=== PATIENT | female | born 1930 | race Caucasian/White ===

== ENCOUNTER → 2017-01-12 | Outpatient (CLI) | payer OTHER, MEDICARE ==
[~2017-01-12] MED LIST: B-COMPLEX-VITA1 EACH PO; CIPRO750 MG PO; COLACE100 MG PO; FLAGYL500 MG PO; GLUCOSAMINE-CH1 EA32 PO; LORTAB 5-325 M1 EACH PO; OMEGA-31000 M1 PO; TYLENOL EXTRA500 MG PO; VITAMIN C1000 MG PO; VITAMIN D31000 UNIT PO; VITAMINS
== END | disposition home or self-care (01) ==
LOC: RAD 17:01
DX: I82.432 Acute embolism and thrombosis of left popliteal vein (principal); I82.492 Acute embolism and thrombosis of other specified deep vein of left lower extremity
CPT/HCPCS: 93971

== ENCOUNTER 2017-02-14 10:58 | Emergency (ER) | payer OTHER, MEDICARE ==
[~2017-02-14] VITALS: Ht 162.6 cm; Wt 53.0 kg
[2017-02-14 11:53] LABS: EOSINOPHIL (%) 3.1 % (0-5); EOSINOPHIL COUNT 0.2 K/uL (0-0.3); HEMATOCRIT 37.6 % (36.0-46.0); IMMATURE GRANULOCYTE (%) 0.1 % (0.0-0.7); INSTRUMENT ABS NEUTROPHIL CT 5.6 K/uL; LYMPHOCYTE COUNT 0.9 K/uL (1.0-2.8); MCH 30.5 PG (29.0-34.0); MCHC 33.8 G/DL (30.0-36.0); MCV 90.2 FL (83-99); MEAN PLAT.VOLUME 9.2 uM^3 (9.5-12.4); MONOCYTE (%) 9.3 % (3-12); MONOCYTE COUNT 0.7 K/uL (0-0.8); NEUTROPHIL (%) 75.4 % (45-76); NEUTROPHIL COUNT 5.6 K/uL (1.8-6.4); PLATELET COUNT 138 K/uL (156-360); RBC DIS.WIDTH-CV 14.4 % (11.8-14.6); RBC DIS.WIDTH-SD 47.6 % (39-53); RED BLOOD COUNT 4.17 M/uL (3.80-5.20); WHITE BLOOD COUNT 7.4 K/uL (4.1-10.2)
[2017-02-14 12:01] LABS: INTER. NORMALIZED RATIO 1.6; PROTHROMBIN TIME 18.6 SEC (10.2-12.9)
[2017-02-14 12:04] LABS: PTT 26.6 SEC (25-37)
[2017-02-14 12:05] LABS: CHLORIDE 104 mEq/L (99-109); MAGNESIUM 1.8 mg/dL (1.3-2.7); POTASSIUM 4.1 mEq/L (3.7-5.4); SODIUM 135 mEq/L (136-147)
[2017-02-14 12:07] LABS: GLUCOSE 87 mg/dL (70-99)
[2017-02-14 12:08] LABS: ANION GAP 7 MEQ/L (2-14)
[2017-02-14 12:09] LABS: TOTAL BILIRUBIN 0.5 mg/dL (0.0-1.0)
[2017-02-14 12:11] LABS: ALKALINE PHOSPHATASE 56 IU/L (3-129); GFR ESTIMATE (CALCULATED) > 59 mL/min/
[2017-02-14 12:12] LABS: UREA NITROGEN (BUN) 18 mg/dL (9-23)
[2017-02-14 12:14] LABS: CREATINE KINASE 34 IU/L (1-294); TOTAL CK 34 IU/L (1-294); TROP-I INTERPRETATION NEGATIVE; TROPONIN-I 0.13 ng/mL (0.0-0.30)
[2017-02-14 12:20] LABS: CK-MB 1.7 ng/mL (0.0-4.9)
[2017-02-14 14:07] LABS: ADD MIUA? NO; BILIRUBIN NEGATIVE; BLOOD NEGATIVE; COLOR YELLOW ((YELLOW)); GLUCOSE (STRIP) NEGATIVE; KETONES NEGATIVE; LEUKOCYTES NEGATIVE; NITRITE NEGATIVE; PROTEIN (STRIP) NEGATIVE; SPECIFIC GRAVITY 1.011 (1.000-1.030); UCUL ADDED? NO; UROBILINOGEN 0.2 MG/DL (0.2-1.0)
[2017-02-14 16:04] VITALS: BP 154/77
== END 2017-02-14 16:09 | disposition home or self-care (01) ==
LOC: EME 10:58
PROVIDERS: Emergency Medicine
DX: C34.90 Malignant neoplasm of unspecified part of unspecified bronchus or lung (principal); J91.0 Malignant pleural effusion; E86.0 Dehydration; R53.1 Weakness; Z86.718 Personal history of other venous thrombosis and embolism; Z79.01 Long term (current) use of anticoagulants; Z87.891 Personal history of nicotine dependence; Z88.2 Allergy status to sulfonamides
CPT/HCPCS: 71020; 80053; 81003; 82550; 82553; 83735; 84484; 85025; 85610; 85730; 93005; 99281; 99285; J7030

== ENCOUNTER 2017-02-20 21:34 | Inpatient (IN) | payer OTHER, MEDICARE ==
[~2017-02-20] VITALS: Ht 167.6 cm; Wt 49.8 kg
[2017-02-20 21:56] LABS: HEMOGLOBIN 12.6 G/DL (11.9-15.5); MCH 30.7 PG (29.0-34.0); MCV 87.8 FL (83-99); PLATELET COUNT 135 K/uL (156-360); RBC DIS.WIDTH-CV 14.1 % (11.8-14.6); RBC DIS.WIDTH-SD 45.1 % (39-53); WHITE BLOOD COUNT 6.5 K/uL (4.1-10.2)
[2017-02-20 22:09] LABS: CHLORIDE 99 mEq/L (99-109); POTASSIUM 4.3 mEq/L (3.7-5.4); SODIUM 130 mEq/L (136-147)
[2017-02-20 22:10] LABS: GLUCOSE 99 mg/dL (70-99)
[2017-02-20 22:14] LABS: CREATININE 0.8 mg/dL (0.6-1.3); GFR ESTIMATE (CALCULATED) > 59 mL/min/
[2017-02-20 22:15] LABS: UREA NITROGEN (BUN) 16 mg/dL (9-23)
[2017-02-20 22:18] LABS: TROP-I INTERPRETATION INDETERMINATE; TROPONIN-I 0.53 ng/mL (0.0-0.30)
[2017-02-20 23:45] LABS: APPEARANCE CLEAR ((CLEAR)); BILIRUBIN NEGATIVE; BLOOD LARGE; COLOR STRAW ((YELLOW)); GLUCOSE (STRIP) NEGATIVE; KETONES NEGATIVE; LEUKOCYTES NEGATIVE; NITRITE NEGATIVE; PROTEIN (STRIP) NEGATIVE; SPECIFIC GRAVITY 1.005 (1.000-1.030); UROBILINOGEN 0.2 MG/DL (0.2-1.0)
[2017-02-20 23:50] LABS: BACTERIA RARE /HPF; EPITHELIAL CELLS NONE SEEN /HPF; MUCUS TRACE /LPF; RED BLOOD CELLS TNTC /HPF (0-5); UCUL ADDED? YES; WHITE BLOOD CELLS 0-5 /HPF (0-5)
[2017-02-21] MEDS ORDERED: [UNRECOGNIZED DRUG - OTHER] SL (00:23)
[2017-02-21] MEDS ORDERED: XARELTO20 MG PO (00:23)
[2017-02-21 00:47] LABS: INTER. NORMALIZED RATIO 1.2
[2017-02-21 00:49] LABS: PTT 23.4 SEC (25-37)
[2017-02-21 02:10] VITALS: BP 148/64
[2017-02-21 04:15] VITALS: BP 157/70
[2017-02-21 05:22] LABS: TROP-I INTERPRETATION POSITIVE; TROPONIN-I 0.72 ng/mL (0.0-0.30)
[2017-02-21 05:27] LABS: HDL CHOLESTEROL 55 MG/DL (Desirable>=50); LDL CHOLESTEROL 113 mg/dL (Desirable<100); NON-HDL CHOLESTEROL 123 mg/dL (Desirable<160); TOTAL CHOLESTEROL 178 mg/dL (Desirable<200); TRIGLYCERIDES 48 MG/DL (Normal: <150)
[2017-02-21 07:49] VITALS: BP 161/68
[2017-02-21 10:31] LABS: TROP-I INTERPRETATION INDETERMINATE; TROPONIN-I 0.57 ng/mL (0.0-0.30)
[2017-02-21 12:01] VITALS: BP 139/65
[2017-02-21 17:04] VITALS: BP 137/61
[2017-02-21 19:20] VITALS: BP 161/69
[2017-02-22] VITALS (7 sets, daily range): BP systolic 116–159; BP diastolic 54–69
[2017-02-22 11:59] LABS: ALBUMIN 3.4 G/DL (3.2-4.8); ALKALINE PHOSPHATASE 49 IU/L (3-129); ALT (GPT) 23 IU/L (3-49); AST (GOT) 31 IU/L (2-34); CHLORIDE 99 MEQ/L (99-109); CREATININE 0.8 MG/DL (0.6-1.3); GFR ESTIMATE (CALCULATED) > 59 mL/min/; GLUCOSE 100 mg/dL (70-99); SODIUM 133 MEQ/L (136-147); TOTAL BILIRUBIN 0.5 MG/DL (0.0-1.0); TOTAL PROTEIN 5.8 G/DL (6.4-8.3); UREA NITROGEN (BUN) 17 mg/dL (9-23)
[2017-02-23 03:00] VITALS: BP 123/57
[2017-02-23 09:00] VITALS: BP 136/71
[2017-02-23 11:18] VITALS: BP 145/69
[2017-02-23 16:00] VITALS: BP 151/71
[2017-02-23 20:00] VITALS: BP 165/70
[2017-02-23 23:55] VITALS: BP 154/81
[2017-02-24 04:00] VITALS: BP 161/75
[2017-02-24 08:46] VITALS: BP 171/73
[2017-02-24 18:04] VITALS: BP 186/77
[2017-02-24 20:00] VITALS: BP 179/81
[2017-02-24 23:55] VITALS: BP 190/81
[2017-02-25] VITALS (7 sets, daily range): BP systolic 106–143; BP diastolic 53–76
[2017-02-25 05:49] LABS: HEMATOCRIT 31.6 % (36.0-46.0); HEMOGLOBIN 10.9 G/DL (11.9-15.5); MCH 30.4 PG (29.0-34.0); MCHC 34.5 G/DL (30.0-36.0); MCV 88.3 FL (83-99); RBC DIS.WIDTH-CV 13.9 % (11.8-14.6); RBC DIS.WIDTH-SD 45.1 % (39-53); RED BLOOD COUNT 3.58 M/uL (3.80-5.20); WHITE BLOOD COUNT 8.9 K/uL (4.1-10.2)
[2017-02-25 05:58] LABS: PLATELET COUNT 202 K/uL (156-360)
[2017-02-25 07:28] LABS: CHLORIDE 95 MEQ/L (99-109); CREATININE 0.7 MG/DL (0.6-1.3); GFR ESTIMATE (CALCULATED) > 59 mL/min/; GLUCOSE 80 mg/dL (70-99); UREA NITROGEN (BUN) 19 mg/dL (9-23)
[2017-02-25 07:32] LABS: SODIUM 124 MEQ/L (136-147)
[2017-02-25 11:45] LABS: PTT 24.4 SEC (25-37)
[2017-02-25 11:55] LABS: TYPE OF FLUID THORACENTESIS
[2017-02-25 12:24] LABS: BODY FLUID GLUCOSE 64 MG/DL; BODY FLUID LDH 704 IU/L; BODY FLUID PROTEIN 4.1 G/DL
[2017-02-25 12:34] LABS: APPEARANCE CLOUDY-BLOODY; BODY FLUID EOSINOPHILS 0 % (0-25); BODY FLUID RBC'S 46000 /MM^3 (0-100); BODY FLUID WBC'S 3668 /MM^3 (0-500); MONONUCLEAR WBC'S 37 %; POLYNUCLEAR WBC'S 63 % (0-25)
[2017-02-26 04:30] VITALS: BP 129/75
[2017-02-26 08:00] VITALS: BP 101/52
[2017-02-26 08:46] LABS: ALBUMIN 2.7 G/DL (3.2-4.8); CHLORIDE 102 MEQ/L (99-109); CREATININE 0.7 MG/DL (0.6-1.3); GFR ESTIMATE (CALCULATED) > 59 mL/min/; GLUCOSE 97 mg/dL (70-99); PHOSPHORUS 1.9 mg/dL (2.5-4.9); POTASSIUM 3.8 MEQ/L (3.7-5.4); SODIUM 134 MEQ/L (136-147); THYROTROPIN (TSH) 4.4 MIU/L (0.4-5.5); UREA NITROGEN (BUN) 19 mg/dL (9-23); URIC ACID 5.5 mg/dL (3.1-9.2)
[2017-02-26 12:00] VITALS: BP 119/56
[2017-02-26] MEDS ORDERED: LOPRESSOR25 MG PO (16:49)
[2017-02-26] MEDS ORDERED: TYLENOL REGULA325 MG PO (16:50)
[2017-02-26] MEDS ORDERED: DOCUSATE SODIU100 MG PO (16:51)
[2017-02-26] MEDS ORDERED: ATORVASTATIN CA40 MG PO (16:57)
== END 2017-02-26 20:05 | DRG 253 ==
LOC: EME → EDBD 21:34 → EME 21:34 → EDOF 02-21 00:22 → 4EAST 02-21 00:22 → ENRESERV 02-21 00:23 → 4EAST 02-21 01:43
PROVIDERS: Emergency Medicine; Hospitalist; Internal Medicine; Internal Medicine Nephrology; Physician Assistant Medical; Surgery
PROC: 03Q Upper Arteries, Repair (ICD-10-PCS; principal; 2017-02-24)
PROC: B2151ZZ Fluoroscopy of Left Heart using Low Osmolar Contrast (ICD-10-PCS; principal; 2017-02-24)
PROC: 4A023N7 Measurement of Cardiac Sampling and Pressure, Left Heart, Percutaneous Approach (ICD-10-PCS; principal; 2017-02-24)
PROC: 05LY3ZZ Occlusion of Upper Vein, Percutaneous Approach (ICD-10-PCS; principal; 2017-02-24)
PROC: B2111ZZ Fluoroscopy of Multiple Coronary Arteries using Low Osmolar Contrast (ICD-10-PCS; principal; 2017-02-24)
PROC: 0W993ZZ Drainage of Right Pleural Cavity, Percutaneous Approach (ICD-10-PCS; 2017-02-25)
DX: I21.4 Non-ST elevation (NSTEMI) myocardial infarction (principal); J91.0 Malignant pleural effusion; C34.90 Malignant neoplasm of unspecified part of unspecified bronchus or lung; E22.2 Syndrome of inappropriate secretion of antidiuretic hormone; T81.718A Complication of other artery following a procedure, not elsewhere classified, initial encounter; I77.0 Arteriovenous fistula, acquired; Y92.234 Operating room of hospital as the place of occurrence of the external cause; Y84.0 Cardiac catheterization as the cause of abnormal reaction of the patient, or of later complication, without mention of misadventure at the time of the procedure; Z66 Do not resuscitate; Z86.718 Personal history of other venous thrombosis and embolism; I25.10 Atherosclerotic heart disease of native coronary artery without angina pectoris; R41.0 Disorientation, unspecified; T40.2X5A Adverse effect of other opioids, initial encounter
CPT/HCPCS: 36415; 71020; 71275; 76942; 80048; 80053; 80061; 80069; 81003; 82945; 82948; 83615 91; 83735; 83880; 83930; 83935; 84157; 84300; 84439; 84443; 84481; 84484; 84550; 85025; 85027; 85610; 85730; 87086; 87086 GA; 88108; 88305; 89051; 93005; 93306; 94640; 94799; 99281; 99285; C1769; C1887; J0360; J0461; J1644; J1650; J2250; J2270; J2405; J3010; J7040